=== PATIENT | female | born 1940 | race Caucasian/White ===

== ENCOUNTER 2017-04-01 06:16 | Emergency (ER) | payer MEDICARE ==
[~2017-04-01 06:16] MED LIST: ACETAMINOPHEN325 M2 PO; ASPIRIN325 M3 PO; BISACODYL10 M1 RC; CELEXA20 M2 PO; DOXYCYCLINE HY100 M5 PO; HYCET 7.5 MG-3473 M2 PO; HYDROCHLOROTH12.5 M3 PO; HYDROCHLOROTH12.5 MG PO; LEVOTHYROXINE25 MCG PO; METOPROLOL TART25 M1 PO; MIRALAX17 G2 PO; NYSTATIN100000 UNI PO; PAXIL10 M1 PO; PAXIL10 MG PO; PERCOCET 5/3251 TAB PO; PROTONIX40 M2 PO; SIMVASTATIN10 MG PO; SIMVASTATIN40 M1 PO; SYNTHROID112 MC1 PO; TRAMADOL HCL50 MG PO; TYLENOL EXTRA500 M1 PO; ULTRAM50 M1 PO; ZESTRIL10 M3 PO
[2017-04-01 06:57] LABS: BASO % 1.2 % (0-2); BASO ABSOLUTE COUNT 0.1 tho/cmm (0.0-0.2); EOS % 2.2 % (0-7); EOSINOPHIL ABSOLUTE COUNT 0.1 tho/cmm (0.0-0.7); HCT-HEMATOCRIT 35.4 % (34.0-49.0); HGB-HEMOGLOBIN 12.4 gm/dl (12.0-15.5); LYMPH % 19.1 % (20-45); LYMPH ABSOLUTE COUNT 0.8 tho/cmm (0.8-4.5); MCH (MEAN CORPUSCULAR HGB) 32.4 pg (28.0-32.0); MCV (MEAN CELL VOLUME) 92.4 fl (82.0-96.0); MEAN PLATELET VOLUME 8.1 cmc (9.4-12.4); MONO % 10.4 % (0-12); MONOCYTE ABSOLUTE COUNT 0.4 tho/cmm (0.0-1.2); NEUTROPHIL ABSOLUTE COUNT 2.8 tho/cmm (1.6-8.0); NEUTROPHIL-AUTOMATED 2.8 tho/cmm (1.6-8.0); NEUTROPHILS % 67.1 % (40-80); PLATELET COUNT 345 tho/cmm (150-450); RED BLOOD COUNT 3.83 mil/cmm (4.00-5.20); RED CELL DISTRIBUTION WIDTH 13.3 % (12.4-16.4); WHITE BLOOD COUNT 4.1 tho/cmm (4.0-10.0)
[2017-04-01 07:16] LABS: ALBUMIN 3.5 g/dl (3.5-5.0); ALKALINE PHOSPHATASE 89 U/L (33-138); ALT/SGPT 18 U/L (12-78); BILIRUBIN,TOTAL 0.3 mg/dl (0-1.5); BLOOD UREA NITROGEN 12 mg/dl (6-24); CALCIUM 8.3 mg/dl (8.5-10.5); CARBON DIOXIDE-VENOUS 22 mmol/L (22-32); CHLORIDE 97 mmol/l (96-110); CREATININE 0.71 mg/dl (0.50-1.10); GLUCOSE 98 mg/dL (70-110); LIPASE 76 U/L (73-393); SODIUM 130 mmol/L (135-145); eGFR VALUE FOR BLACK >90 mL/Min
[2017-04-01 07:40] LABS: ANION GAP 15 mmol/L (0-20); C-REACTIVE PROTEIN <0.3 mg/dl (0-0.9)
[2017-04-01 07:41] LABS: AST/SGOT 25 U/L (10-40); POTASSIUM 4.3 mmol/L (3.7-5.1)
[2017-04-01 08:21] LABS: URINE BILIRUBIN NEGATIVE (NEG); URINE BLOOD NEGATIVE (NEG); URINE GLUCOSE (UA) NEGATIVE (NEG); URINE KETONE NEGATIVE (NEG); URINE LEUKOCYTE ESTERASE POSITIVE (NEG); URINE NITRITE POSITIVE (NEG); URINE PH 6.5 (5.0-8.0); URINE PROTEIN NEGATIVE (NEG); URINE SPECIFIC GRAVITY 1.015 (1.003-1.030)
[2017-04-01 08:26] LABS: URINE APPEARANCE HAZY; URINE COLOR PALE YELLOW
[2017-04-01 08:43] LABS: URINE BACTERIA 4+; URINE RBC 0 /[HPF] (0-5)
[2017-04-01] MEDS ORDERED: MACROBID 100 M100 M1 PO (09:48)
== END 2017-04-01 09:57 ==
LOC: EDMED 06:16
PROVIDERS: Emergency Medicine
DX: S22.31XA Fracture of one rib, right side, initial encounter for closed fracture (principal); N39.0 Urinary tract infection, site not specified; I10 Essential (primary) hypertension; E78.5 Hyperlipidemia, unspecified; M19.90 Unspecified osteoarthritis, unspecified site; E07.9 Disorder of thyroid, unspecified; F17.200 Nicotine dependence, unspecified, uncomplicated; Z79.890 Hormone replacement therapy; Z79.899 Other long term (current) drug therapy; X58.XXXA Exposure to other specified factors, initial encounter
CPT/HCPCS: J7030; P9612; Q9967